=== PATIENT | female | born 1955 | race Asian ===

== ENCOUNTER 2017-04-28 17:50 | Emergency (ER) | payer OTHER ==
[~2017-04-28] VITALS: Ht 152.4 cm; Wt 49.9 kg
[2017-04-28 18:10] VITALS: BP 132/96; Ht 152.4 cm; Wt 49.9 kg
== END 2017-04-28 20:30 | disposition left against medical advice (07) ==
LOC: ED 17:50
DX: Z53.21 Procedure and treatment not carried out due to patient leaving prior to being seen by health care provider (principal)